=== PATIENT | female | born 1980 | race Caucasian/White ===

== ENCOUNTER 2021-06-06 17:11 | Outpatient (CLI) | payer MEDICAID, SELFPAY ==
--- NOTE | 2021-06-06 04:15 | EMB_PTH ---
PATIENT: JAYLEN VALIENTE LOC: [facility] U#:[id number] AGE/SX: 40/F ROOM: RE06/06/[address]: Dr. Kat Wolf DO : 1980 BED: DIS: 06/06/2021 SPEC #: [id number] RECD: 06/06/21 17:10 STATUS: HAILEY JENI #: [id number] DIVINA: 06/06/21 04:[address]: Kat Wolf DEPT: SURGICAL PATHOLOGY RECD BY: Alyssa Zamora Tissues: Endometrium, NOS Procedures: Surgery Specimen Level IV HEADER OPERATION: Endometrial biopsy PRE-OP DIAGNOSIS: Abnormal uterine bleeding TISSUE SUBMITTED: Endometrial lining MICROSCOPIC DIAGNOSIS Endometrial biopsy: Weakly proliferative endometrium. KAYLEE:rachell 06/08/2021 MICROSCOPIC DESCRIPTION Slides are reviewed. GROSS DESCRIPTION Received is one container labeled with the patient's name and not further designated. The specimen consists of multiple irregular fragments of bell-pink soft tissue that in aggregate measure 1 x 1 x 0.1 cm. The specimen is totally submitted in one cassette. / SJ:rachell 06/07/2021 TC:5 [facility]: [id number]
[2021-06-11 18:01] LABS: HPV APTIMA, High Risk Negative (Negative)
== END 2021-06-06 23:59 | disposition home or self-care (01) ==
PROVIDERS: Visit Provider Obstetrics & Gynecology
DX: N93.9 Abnormal uterine and vaginal bleeding, unspecified (principal)
CPT/HCPCS: 87624; 88175; 88305; G0145

== ENCOUNTER 2021-06-10 13:05 | Emergency (ER) | payer MEDICAID, SELFPAY ==
[2021-06-10 13:06] VITALS: BP 145/95; PULSE 111; RESP 26; TEMP 36.1; O2SAT 95; BMI 67.1
--- NOTE | 2021-06-10 13:12 | RAD_ITS ---
STUDY: X-RAY CHEST REASON FOR EXAM: Female, 40 years old. Cough TECHNIQUE: Frontal view of the chest COMPARISON: None. FINDINGS: The lungs are clear. There are no pleural effusions. There is no pneumothorax. The heart is normal in size. The visualized osseous structures are within normal limits. RAD/Chest 1 View (Portable) IMPRESSION: No acute thoracic pathology. Electronically Signed: Heri Gates MD at 13:45 EST ,
[2021-06-10 13:35] VITALS: O2SAT 96
--- NOTE | 2021-06-10 14:34 | EKG12_ITS ---
Test Reason : SOB Blood Pressure : / mmHG Vent. Rate : 087 BPM Atrial Rate : 087 BPM P-R Int : 150 ms QRS Dur : 084 ms QT Int : 366 ms P-R-T Axes : 007 010 013 degrees QTc Int : 440 ms Normal sinus rhythm Normal ECG Confirmed by SHOBHA GAUTHIER, AURY ([id number]), editorial director YEMI MUELLER ([id number]) on 06/13/2021 12:56:04 PM Referred By: VICKI Confirmed By:AURY YEAGER MD
--- NOTE | 2021-06-10 14:35 | CT_ITS ---
STUDY: CTA CHEST REASON FOR EXAM: Female, 40 years old. chest pain, SOB and amp; cough x 1 month RADIATION DOSAGE (If Supplied By Facility): CTDIvol = ( 30.78 ) mGy, DLP = ( 552.46 ) mGycm TECHNIQUE: The examination was performed with the intravenous administration of IV 100mL Isovue-370. Post-processing of the angiographic images was performed, with multiplanar reformation and 3D reconstruction. Individualized dose optimization techniques were used for this CT. COMPARISON: None. FINDINGS: This study is limited by the patient''s body habitus. No filling defect in the central pulmonary arteries to suggest pulmonary embolism. However, subsegmental pulmonary arteries are suboptimally opacified and therefore inadequately evaluated. Intact thoracic aorta. No adenopathy. No pleural or pericardial effusion. No pneumothorax. Scattered linear densities in the left lung, suggestive of platelike atelectasis versus linear scars. No pulmonary consolidation, mass, or suspicious nodule. Sections through the upper abdomen demonstrate diffuse hepatic steatosis. A very small hiatal hernia noted. No acute osseous abnormality. CT/CTA Chest W/WO Contrast IMPRESSION: Limited study by the patient''s body habitus. No evidence of embolism in the central pulmonary arteries. Subsegmental pulmonary arteries are suboptimally opacified and therefore inadequately evaluated. Electronically Signed: Jorge Alberto Carter MD at 16:12 EST ,
--- NOTE | 2021-06-10 14:35 | ED.VIS.DYS ---
HPI History of Present Illness Chief Complaint: Shortness of Breath Narrative Narrative: 40-year-old female presenting with shortness of breath. She states she had a cough for about a month and over the last couple days of note she said shortness of breath and some mild chest pressure which is retrosternal. She states she gets short of breath with exertion. 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 She states her last fever was a week and a half ago. She has been able to eat and drink and is making urine and stool normally. He is not have any abdominal pain. She does express to me that she has a headache and says sinus tenderness. She also admits to nasal discharge. [facility] Medical History Acute bronchitis, unspecified Acute ethmoidal sinusitis, unspecified COVID-19 Heart palpitations Irregular menses Pneumonia Home Medications allopurinol 100 mg tablet 100 mg PO DAILY 06/06/21 [History Last Taken Unknown] amlodipine 10 mg tablet 10 mg PO DAILY 06/06/21 [History Last Taken Unknown] ergocalciferol (vitamin D2) 1,250 mcg (50,000 unit) capsule 1,250 mcg PO 2XW cap 06/06/21 [History Last Taken Unknown] gabapentin 600 mg tablet 600 mg PO TID 06/06/21 [History Last Taken Unknown] metformin 750 mg tablet,extended release 24 hr 750 mg PO BID 06/06/21 [History Last Taken Unknown] norgestimate-ethinyl estradiol 0.18 mg/0.215mg/0.25mg-35 mcg(28)tablet 1 tab PO DAILY 06/06/21 [History Last Taken Unknown] sertraline 100 mg tablet 200 mg PO DAILY tab 06/06/21 [History Last Taken Unknown] spironolactone 100 mg tablet 100 mg PO DAILY 06/06/21 [History Last Taken Unknown] zolpidem 10 mg tablet 10 mg PO QHS PRN 06/06/21 [History Last Taken Unknown] doxycycline hyclate 100 mg PO BID #20 cap 06/10/21 [Rx Last Taken Unknown] Allergy/AdvReac Type Severity Reaction Status Date / Time Fish Containing Products Allergy unknown Verified 06/06/21 15:42 Penicillins Allergy unknown Verified 06/06/21 15:42 Family History Father Hypertension Chronic lymphatic leukemia Uncle ALS (amyotrophic lateral sclerosis) Aunt ALS (amyotrophic lateral sclerosis) Grandfather ALS (amyotrophic lateral sclerosis) Grandmother Alzheimer disease Surgical History H/O foot surgery History of cholecystectomy History of tonsillectomy Social History Smoking Status: Former smoker alcohol intake: never substance use type: does not use caffeine: Yes what type of physical activity do you participate in: none seatbelt use: always do you feel safe at home: Yes additional social history: ROS ROS ED Constitutional Constitutional ED: Reports chills and fever(s) Eyes Eyes: Denies blurry vision or diplopia ENT ENT ED: Reports rhinorrhea Cardiovascular Cardiovascular: Reports chest pain and racing heartbeat Respiratory/Chest Respiratory/Chest: Reports cough, dyspnea and dyspnea on exertion Gastrointestinal Gastrointestinal: Denies abdominal pain, nausea or vomiting Genitourinary Genitourinary ED: Denies dysuria or hematuria Musculoskeletal Musculoskeletal: Denies arthralgias, myalgias or neck pain Integumentary Denies rash Neurologic Neurologic: Denies headache(s), paresthesias or weakness EXAM Physical Exam Const Vital Signs: 06/10/21 13:06 06/10/21 13:35 06/10/21 14:57 Temperature 97.0 F L Temperature Source Temporal Pulse Rate 111 H Respiratory Rate 26 H Respiratory Effort Labored Respiratory Depth Normal Respiratory Pattern Tachypnea Blood Pressure 145/95 H Blood Pressure Mean 111 Pulse Ox 95 97 Oxygen Delivery Method Room Air Room Air 06/10/21 16:00 Temperature Temperature Source Pulse Rate 99 Respiratory Rate 21 H Respiratory Effort Respiratory Depth Respiratory Pattern Blood Pressure Blood Pressure Mean Pulse Ox 98 Oxygen Delivery Method Room Air Positive obese General Appearance ED: NAD; Negative for pallor Nutritional Appearance: obese HEENT Reports moist mucous membranes HEENT Narrative: Rhinorrhea atraumatic Face and Sinus: sinus tenderness Positive for frontal, sphenoid and maxillary Eyes PERRL and EOMs intact bilaterally Resp normal respiratory effort and clear to auscultation bilaterally Cardio regular rate and regular rhythm GI non-tender and non-distended Palpation: soft Neuro oriented x3 and CN's II-XII intact bilaterally Sensorium / Orientation: alert and oriented to person Motor Exam: strength 5/5 throughout and general weakness Psych mental status grossly normal Thought Process: normal thought process Skin General Skin Exam: Negative for jaundice or pallor MDM MDM MDM Narrative Medical decision making narrative: Patient presenting with dyspnea for the last 2 to 3 days after being sick for about a month that she states has had a cough. Her fever resolved about a week and a half ago. She tested negative for COVID-19 twice. Patient is morbidly obese, on control, without history of PE. She is 40 but I currently cannot PERC her because on arrival she was tachycardic and tachypneic as well at the lumbar control. Currently in the room she is not. CBC, BMP within normal limits. High-sensitivity troponin is 7. At 2 hours this was 11. Chest x-ray on my interpretation shows no acute cardiopulmonary process and the radiologist agree. CTA of the chest is negative. I do not have a source with the patient subjective dyspnea. Since she is having rhinorrhea, history of fever and has had the symptoms for more than 10 days I will start her on a prescription for amoxicillin. Impression: 1. Chest pain 2. Sinusitis 3. Dyspnea Lab Data Labs: Laboratory Results - last 24 hr 06/10/21 06/10/21 06/10/21 13:51 13:51 16:00 WBC 6.4 RBC 4.25 Hgb 12.3 Hct 37.3 MCV 87.8 MCH 28.9 MCHC 33.0 RDW Std Deviation 41.9 RDW Coeff of Gagan 13.0 Plt Count 441 MPV 8.6 Immature Gran % (Auto) 0.900 Neut % (Auto) 63.2 Lymph % (Auto) 27.6 [place] % (Auto) 5.5 Eos % (Auto) 2.5 Baso % (Auto) 0.3 Absolute Neuts (auto) 4.0 Absolute Lymphs (auto) 1.76 Nucleated RBC % 0 Sodium 137 Potassium 4.1 Chloride 102 Carbon Dioxide 28.0 Anion Gap 7 BUN 13 Creatinine 0.91 Estim Creat Clear Calc 74.69 Est GFR (MDRD) Af Amer 88 Est GFR (MDRD) Non-Af 73 BUN/Creatinine Ratio 14.3 Glucose 98 Calcium 9.4 Troponin I High Sens 7 11 Radiography Diagnostic Testing: Clinical Impression(s) from Imaging Studies Chest X-Ray 06/10/21 13:12 IMPRESSION: No acute thoracic pathology. Electronically Signed: Heri Gates MD at 13:45 EST , Chest CTA 06/10/21 14:35 IMPRESSION: Limited study by the patient''s body habitus. No evidence of embolism in the central pulmonary arteries. Subsegmental pulmonary arteries are suboptimally opacified and therefore inadequately evaluated. Electronically Signed: Jorge Alberto Carter MD at 16:12 EST , Discharge Plan Triage Chief Complaint: Shortness of Breath ED Provider: Rivera Silva Dx/Rx/DC Orders Instructions: ED Chest Pain, Uncertain Cause, ED Dyspnea, ED Sinusitis (Antibiotic Treatment) Prescriptions: New doxycycline hyclate 100 mg capsule 100 mg PO BID Qty: 20 RF: 0 No Action metformin 750 mg tablet extended release 24 hr 750 mg PO BID RF: 0 norgestimate-ethinyl estradiol [Tri-Sprintec (28)] 0.18/0.215/0.25 mg-35 mcg (28) tablet 1 tab PO DAILY RF: 0 sertraline 100 mg tablet 200 mg PO DAILY RF: 0 ergocalciferol (vitamin D2) [Vitamin D2] 1,250 mcg (50,000 unit) capsule 1,250 mcg PO 2XW RF: 0 zolpidem 10 mg tablet 10 mg PO QHS PRN (Reason: Sleep) RF: 0 amlodipine 10 mg tablet 10 mg PO DAILY RF: 0 gabapentin 600 mg tablet 600 mg PO TID RF: 0 allopurinol 100 mg tablet 100 mg PO DAILY RF: 0 spironolactone 100 mg tablet 100 mg PO DAILY RF: 0 Primary Care Provider: [facility] Doctor,Out of Referrals: [facility] Doctor,Out of [Primary Care Provider] - Disposition Disposition: Home, Self Care Discharge Date/Time: 06/10/21 16:43
[2021-06-10 14:49] LABS: Absolute Lymphocyte Count 1.76 X10^3/uL (0.83-4.51); Basophil# 0.02 X10^3/uL; Basophil% 0.3 % (0-1); Eosinophil# 0.16 X10^3/uL; Eosinophils% 2.5 % (0-5); Hematocrit 37.3 % (37-47); Hemoglobin 12.3 g/dL (12.0-15.0); Lymphocyte # 1.76 X10^3/ul (0.83-4.51); Lymphocyte % 27.6 % (19-41); Mean Corpuscular Hgb 28.9 pg (27.0-32.0); Mean Corpuscular Volume 87.8 fL (81-99); Mean Platelet Vol. 8.6 fl (6.2-12.0); Monocyte# 0.35 X10^3/uL; Monocyte% 5.5 % (0-10); NRBC Flagged by Analyzer 0 % (0-5); Neutrophil # 4.03 X10^3/uL (2.7-7.7); Neutrophil % 63.2 % (47-70); Platelet Count 441 K/mm3 (150-450); RBC Distribution Width SD 41.9 fl (35.1-43.9); Red Blood Count 4.25 M/mm3 (4.2-5.4); White Blood Count 6.4 K/mm3 (4.4-11.0)
[2021-06-10 14:57] VITALS: O2SAT 97
[2021-06-10 15:08] LABS: Anion Gap 7 (5-15); BUN 13 mg/dL (7-18); BUN/Creat Ratio 14.3 RATIO (10-20); Calcium,Total 9.4 mg/dL (8.5-10.1); Chloride 102 mmol/L (98-107); Creatinine, Serum 0.91 mg/dL (0.55-1.02); EST Glomerular Filtration Rate 73 mL/min (>60); Est Glom Filt Rate - Afr Amer 88 mL/min (>60); Estimated Creatinine Clearance 74.69 ml/min; Glucose 98 mg/dL (74-106); Potassium 4.1 mmol/L (3.5-5.1); Sodium Level 137 mmol/L (136-145); Troponin-I HS 7 pg/mL (3.0-54.0)
[2021-06-10] MEDS: Metoclopramide 10 MG/2 ML Vial IV (15:19)
[2021-06-10] MEDS: DiphenhydrAMINE 50 MG/ML Syringe 25 MG IV (15:19)
[2021-06-10 16:00] VITALS: PULSE 99; RESP 21; O2SAT 98
[2021-06-10 16:29] LABS: Troponin-I HS 11 pg/mL (3.0-54.0)
[2021-06-10] MEDS: Doxycycline 100 MG CAPSULE PO (16:38)
== END 2021-06-10 16:43 | disposition home or self-care (01) ==
PROVIDERS: Emergency Provider Student in an Organized Health Care Education/Training Program; Visit Provider Student in an Organized Health Care Education/Training Program
DX: R07.9 Chest pain, unspecified (principal); E66.01 Morbid (severe) obesity due to excess calories; Z68.44 Body mass index [BMI] 60.0-69.9, adult; R06.02 Shortness of breath; J32.9 Chronic sinusitis, unspecified; Z79.899 Other long term (current) drug therapy; Z87.891 Personal history of nicotine dependence
CPT/HCPCS: 71045; 71275; 80048; 84484; 85025; 93005; 96374; 96375; 99285; Q9967; A4216

== ENCOUNTER → 2021-08-24 | Outpatient (CLI) | payer MEDICAID, SELFPAY ==
--- NOTE | 2021-08-24 14:19 | US_ITS ---
STUDY: TRANSVAGINAL ULTRASOUND EXAMINATION OF 1423 HOURS AND 08/24/2021 CLINICAL: 41-year-old female with abnormal uterine bleeding. TECHNIQUE: Transvaginal non-obstetrical pelvic ultrasound examination was performed per protocol. COMPARISON: None. FINDINGS: There is normal size anteverted uterus measuring 9.0 cm in length by 5.4 cm in AP diameter by 6.5 cm in transverse diameter. There is a 4 mm thick mildly hyperechoic endometrium. There is no evidence of an intrauterine . There are no findings of an ectopic . There is no uterine fibroids. There is a nabothian cyst in the uterine cervix. There is no intrauterine device. Right ovary measures 5.5 cm x 4.7 mm x 4.3 cm. There is a 4.5 cm x 5.0 cm x 3.7 cm simple cyst in the right ovary. This demonstrates a right ovarian solid mass lesions. There is no evidence of a right ovarian torsion. Left ovary measures 2.13 x 1.8 cm x 2.3 cm and is without cystic or solid mass lesions or torsion. There is no evidence of free fluid in the cul-de-sac or adnexal masses. US/Transvaginal Non- IMPRESSION: 1. Normal-size anteverted uterus with a 4 mm thick echogenic endometrium without an intrauterine . 2. No uterine fibroids. 3. Nabothian cysts with otherwise normal cervix. 4. No intrauterine device. 5. No ectopic . 6. Presence of a 4.5 cm x 5.0 cm x 3.7 cm simple right ovarian cyst. 7. No evidence of other ovarian cystic or solid mass lesions or torsion. 8. No evidence of adnexal masses or free fluid in the cul-de-sac. Electronically Signed: Dav Churchill MD at 23:41 EDT ,
--- NOTE | 2021-08-24 14:19 | BI_ITS ---
MAMMOGRAPHY - BILATERAL SCREENING REASON FOR EXAM: Female, 41 years old. Routine annual screening examination. PERTINENT HISTORY: Non-contributory. TECHNIQUE: Digital bilateral breast mark (3D mammographic acquisition) in the CC and MLO projections. 2-D mediolateral oblique (MLO) and craniocaudad (CC) views of both breasts were obtained. CAD: Full Field Digital Mammography with Computer Added Detection was performed. COMPARISON: None. Baseline examination. FINDINGS: Breast Composition: There are scattered areas of fibroglandular density. There are no dominant masses or suspicious calcifications. No other significant abnormalities are identified. BI/SCRN MAMM (CAD)W/MARK BILAT IMPRESSION: Negative screening mammogram. Yearly followup mammogram recommended. (A) ASSESSMENT CATEGORY: BIRADS Category 1: Negative. A letter regarding these results will be sent to the patient by the facility within 30 days. Approximately 10% of breast cancers are not detected by mammography. A normal mammogram should not delay biopsy of a clinically suspicious abnormality. [id number] Electronically Signed: Vahe Mace MD at 15:28 EDT ,
== END | disposition home or self-care (01) ==
LOC: OPUS 14:18
PROVIDERS: Referring Provider Obstetrics & Gynecology; Visit Provider Obstetrics & Gynecology
DX: Z12.31 Encounter for screening mammogram for malignant neoplasm of breast (principal); N93.9 Abnormal uterine and vaginal bleeding, unspecified
CPT/HCPCS: 76830; 77063; 77067